=== PATIENT | female | born 1985 | race Hispanic/Latino ===

== ENCOUNTER 2017-12-16 16:07 | Emergency (ER) | payer MEDICAID ==
[2017-12-16] MEDS ORDERED: ACETAMINOPHEN 325 MG TAB ONE (16:26)
[2017-12-16 17:07] LABS: APPEARANCE,URINE CLOUDY (CLEAR); BILIRUBIN,URINE NEGATIVE (NEGATIVE); COLOR,URINE YELLOW (YELLOW); GLUCOSE, URINE (UA) NEGATIVE (NEGATIVE); KETONES,URINE NEGATIVE (NEGATIVE); LEUKOCYTE ESTERASE ,URINE NEGATIVE (NEGATIVE); NITRATE,URINE NEGATIVE (NEGATIVE); OCCULT BLOOD,URINE NEGATIVE (NEGATIVE); PH,URINE 7.5 (5.0-8.0); PROTEIN,URINE NEGATIVE (NEGATIVE)
[2017-12-16 17:13] LABS: AMORPHOUS SEDIMENT,UR Moderate /LPF (None Seen); BACTERIA,URINE Rare /HPF (None Seen); RBC,URINE 0-1 /HPF (0-1); SQUAMOUS EPITHELIAL CELL,UR Few /LPF (0-2); WBC,URINE 0-1 /HPF (0-1)
== END 2017-12-16 17:31 | disposition home or self-care (01) ==
LOC: EDH 16:07
DX: O26.891 Other specified pregnancy related conditions, first trimester (principal); M54.16 Radiculopathy, lumbar region; R10.9 Unspecified abdominal pain; Z3A.11 11 weeks gestation of pregnancy
CPT/HCPCS: 81001

== ENCOUNTER 2017-12-29 21:57 | Emergency (ER) | payer MEDICAID ==
[2017-12-29] MEDS ORDERED: ONDANSETRON HCL 4 MG/2 ML VIAL ONE (23:05)
[2017-12-29] MEDS ORDERED: SODIUM CHLORIDE 0.9% 1000ML 1,000 ML IV ONE (23:06)
[2017-12-29] MEDS ORDERED: ACETAMINOPHEN EXTRA STRENGTH 500 MG TABLET ONE (23:06)
[2017-12-29 23:10] LABS: BASOPHILS % (AUTO) 0.4 % (0.0-5.0); EOSINOPHILS % (AUTO) 1.6 % (0.0-8.0); HEMATOCRIT 37.3 % (36-48); LYMPHOCYTES % (AUTO) 28.8 % (21.0-51.0); MEAN CORPUSCULAR HGB CONC 35.4 g/dL (32.0-36.0); MEAN CORPUSCULAR VOLUME 90.4 fL (79-99); MONOCYTES % (AUTO) 6.7 % (3.0-13.0); NEUTROPHILS % (AUTO) 62.5 % (40.0-77.0); PLATELET COUNT (AUTO) 219 K/uL (130-400); RED BLOOD CELL COUNT(AUTO) 4.12 MIL/uL (4.00-5.50); RED CELL DISTRIBUTION WIDTH 11.9 % (11.0-15.5); WHITE BLOOD COUNT (AUTO) 8.9 K/uL (4.8-10.8)
[2017-12-29 23:16] LABS: CREATININE 0.6 mg/dL (0.5-1.5); POTASSIUM 3.6 mmol/L (3.5-5.1)
[2017-12-30] MEDS ORDERED: METOCLOPRAMIDE 10 MG/2 ML VIAL ONE (00:25)
== END 2017-12-30 00:48 | disposition home or self-care (01) ==
LOC: EDH 21:57
DX: O26.891 Other specified pregnancy related conditions, first trimester (principal); R51 Headache; R11.2 Nausea with vomiting, unspecified; Z3A.13 13 weeks gestation of pregnancy
CPT/HCPCS: 36415; 80048; 85025; 96361; 96374; 99284; J2405; J2765; J7030

== ENCOUNTER 2018-01-27 20:07 | Emergency (ER) | payer MEDICAID ==
[2018-01-27] MEDS ORDERED: METHYLPREDNISOLONE SOD SUCC 125MG/2ML VIAL ONE (21:06)
[2018-01-27] MEDS ORDERED: AZITHROMYCIN 250 MG TABLET PO ONE (21:07)
== END 2018-01-27 20:36 | disposition left against medical advice (07) ==
LOC: EDH 20:07
DX: Z53.21 Procedure and treatment not carried out due to patient leaving prior to being seen by health care provider (principal)
CPT/HCPCS: J2930

== ENCOUNTER 2018-03-22 00:25 | Observation (INO) | payer MEDICAID ==
[~2018-03-22] VITALS: Ht 167.6 cm; Wt 113.4 kg
[2018-03-22 01:07] LABS: APPEARANCE,URINE Cloudy (CLEAR); BILIRUBIN,URINE Negative (NEGATIVE); COLOR,URINE Yellow (YELLOW); GLUCOSE, URINE (UA) Negative (NEGATIVE); KETONES,URINE Negative (NEGATIVE); LEUKOCYTE ESTERASE ,URINE Trace (NEGATIVE); NITRATE,URINE Negative (NEGATIVE); OCCULT BLOOD,URINE Negative (NEGATIVE); PH,URINE 6.5 (5.0-8.0); PROTEIN,URINE Negative (NEGATIVE)
[2018-03-22 01:15] LABS: AMPHET/METH SCREEN,URINE NEGATIVE (NEGATIVE); BARBITURATE SCREEN, URINE NEGATIVE (NEGATIVE); BENZODIAZEPINES SCREEN,URINE NEGATIVE (NEGATIVE); CANNABINOID SCREEN,URINE NEGATIVE (NEGATIVE); COCAINE SCREEN,URINE NEGATIVE (NEGATIVE); OPIATE SCREEN,URINE NEGATIVE (NEGATIVE); PHENCYCLIDINE SCREEN,URINE NEGATIVE (NEGATIVE)
[2018-03-22 01:29] VITALS: BP 115/56
[2018-03-22] MEDS ORDERED: CALC500T13 PO (01:32)
[2018-03-22] MEDS ORDERED: PNV71COM PO (01:32)
[2018-03-22 01:37] LABS: BACTERIA,URINE Few /HPF (None Seen); MUCUS,URINE Moderate LPF (None Seen); RBC,URINE 0-1 /HPF (0-1); SQUAMOUS EPITHELIAL CELL,UR Moderate /HPF (0-2)
== END 2018-03-22 01:50 | disposition home or self-care (01) ==
LOC: EDH 00:25 → LDH 00:26 → UNDOADMOB 00:26
PROVIDERS: ADMIT Obstetrics & Gynecology; ATTEND Obstetrics & Gynecology
DX: O26.892 Other specified pregnancy related conditions, second trimester (principal); R10.2 Pelvic and perineal pain; Z86.59 Personal history of other mental and behavioral disorders; Z3A.23 23 weeks gestation of pregnancy
CPT/HCPCS: 80305; 81001; 99285; G0378

== ENCOUNTER 2018-05-12 12:09 | Observation (INO) | payer MEDICAID ==
[~2018-05-12 12:09] MED LIST: CALC500T13 PO; PNV71COM PO
== END 2018-05-12 14:06 | disposition home or self-care (01) ==
LOC: LDH 12:09
PROVIDERS: ADMIT Obstetrics & Gynecology; ATTEND Obstetrics & Gynecology
DX: O36.8190 Decreased fetal movements, unspecified trimester, not applicable or unspecified (principal); Z3A.00 Weeks of gestation of pregnancy not specified
CPT/HCPCS: 76819; G0378 ×3

== ENCOUNTER 2018-05-22 15:33 | Observation (INO) | payer MEDICAID | END 2018-05-22 17:02 | disposition home or self-care (01) | LOC: LDH 15:33 | PROVIDERS: ADMIT Obstetrics & Gynecology; ATTEND Obstetrics & Gynecology | DX: O36.8130 Decreased fetal movements, third trimester, not applicable or unspecified (principal); Z3A.32 32 weeks gestation of pregnancy | CPT/HCPCS: 59025; G0378 ×2 ==